=== PATIENT | male | born 1980 | race Two or more races ===

== ENCOUNTER 2021-07-31 09:21 | Emergency (ER) | payer MEDICAID, OTHER ==
[~2021-07-31] VITALS: Ht 180.3 cm; Wt 95.3 kg
[2021-07-31 10:26] VITALS: BP 110/73
[2021-07-31] MEDS ORDERED: KETOROLAC TROMETH 60MG/2ML VIAL IM ONE (10:30)
[2021-07-31] MEDS ORDERED: IBUP800T26 PO (10:32)
[2021-07-31 11:11] LABS: Urine Bacteria NONE SEEN /hpf (None Seen); Urine Blood Negative /uL (Negative); Urine Mucus FEW (None Seen); Urine Specific Gravity 1.027 (1.001-1.035); Urine WBC 3 /hpf (0 - 3)
[2021-07-31] MEDS ORDERED: PRED10TA PO (12:27)
== END 2021-07-31 12:39 | disposition home or self-care (01) ==
LOC: ER 09:29
DX: M25.462 Effusion, left knee (principal); E79.0 Hyperuricemia without signs of inflammatory arthritis and tophaceous disease; Z79.1 Long term (current) use of non-steroidal anti-inflammatories (NSAID)
CPT/HCPCS: 36415; 73562; 81001; 84550; 96372; 99284; J1885

== ENCOUNTER 2025-01-22 10:55 | Emergency (ER) | payer BC, MEDICAID ==
[~2025-01-22] VITALS: Ht 180.3 cm; Wt 100.0 kg
[~2025-01-22 10:55] MED LIST: ALL300T PO; CEPH250C PO; HYDR-4902 PO; IBUP-1455 PO; INDO50CA82 PO; PRED10TA PO; PRED20TA2 PO
--- NOTE | 2025-01-22 11:09 | ED.PDOC ---
Musculoskeletal HPI Comments This patient is a pleasant but obese 44-year-old male with PMHx Gout presents with a chief complaint of right knee pain. Patient mentions that his right knee is swollen and rates his pain a 7/10 at this time. Patient reports a history of Gout, but is unsure if this is a Gout flare up. Additionally, patient has had knee effusion in the past as he works on his knees at work. Patient mentions that the swelling and pain was spontaneous and denies any trauma or injuries prior to onset. No other symptoms or modifying factors present at this time. Patient was hypertensive and tachycardic at arrival. Chief Complaint: Lower Extremity Time Seen by MD: 11:03 Primary Care Provider: LEO Gonzalez Notes: Nurses Notes, Medications, Allergies Allergies: Coded Allergies: NO KNOWN ALLERGIES (Unverified , 07/31/21) Home Meds Active Scripts Ibuprofen Micronized (Ibuprofen) 800 Mg Tab, 800 MG PO Q8HP PRN, #20 TAB Prov:PATRICIA AVERY PAC 01/22/25 Indomethacin (Indomethacin) 50 Mg Cap, 1 CAP PO TID, #30 CAP 1 Refill Prov:CARLOZ ROD MD 06/29/23 Allopurinol (ZYLOPRIM TABLET) 300 Mg Tb, 1 TAB PO DAILY, #90 TAB 3 Refills Prov:CARLOZ ROD MD 06/29/23 Prednisone (Prednisone) 20 Mg Tab, 20 MG PO BID, #14 MG Prov:CARLOZ ROD MD 06/29/23 Hydrocodone-Acetaminophen (Hydrocodone Bitartrate/AC 5-325 mg) 1 Tab Tab, 1 TAB PO QID PRN, #30 TAB Prov:CARLOZ ROD MD 06/29/23 Cephalexin (KEFLEX CAPSULE) 250 Mg Cp, 1 CAP PO QID, #40 CAP Prov:CARLOZ ROD MD 06/29/23 Prednisone (Prednisone) 10 Mg Tab, 10 MG PO DAILY for 5 Days, #5 TAB 0 Refills Prov:NEGAR [employer]APER JAVASCRIPT PROGRAMMER 07/31/21 Ibuprofen Micronized (Ibuprofen) 800 Mg Tab, 800 MG PO TIDPRN PRN for 10 Days, #30 TAB 0 Refills Prov:NEGAR DRAPER JAVASCRIPT PROGRAMMER 07/31/21 Information Source: Patient Mode of Arrival: Ambulatory Location: Right Extremity Location: Knee Timing: Days Prehospital treatment: None Severity: Moderate Able to Move Extremity: Yes Bear Weight: Fully Pain: Moderate Hand Dominance: Right Mechanism: Spontaneous Circumstances: Spontaneous Onset of Symptoms: Spontaneous Symptoms: Swelling, Pain DVT Risk Factors: NONE Last Tetanus: UTD History of: Gout Associated signs and symptoms: Knee pain Past Medical History PAST MEDICAL HISTORY: Gout Surgical History: Denies all surgeries Family History Family History: Reviewed,noncontributory to illness Social History Smoker: Non-Smoker Alcohol: Denies ETOH Use Drugs: Denies Drug Use Lives In: Home Constitutional: denies: chills, diaphoresis, fatigue, fever, malaise, sweats, weakness, others EENTM: denies: blurred vision, double vision, ear bleeding, ear discharge, ear drainage, ear pain, ear ringing, eye pain, eye redness, hearing loss, mouth pain, mouth swelling, nasal discharge, nose bleeding, nose congestion, nose pain, photophobia, tearing, throat pain, throat swelling, voice changes, others Respiratory: denies: cough, hemoptysis, orthopnea, SOB at rest, shortness of breath, SOB with excertion, stridor, wheezing, others Cardiovascular: denies: chest pain, dizzy spells, diaphoresis, Dyspnea on exertion, edema, irregular heart beat, left arm pain, lightheadedness, palpitations, PND, syncope, others Gastrointestinal: denies: abdomen distended, abdominal pain, blood streaked bowels, constipated, diarrhea, dysphagia, difficulty swallowing, hematemesis, melena, nausea, poor appetite, poor fluid intake, rectal bleeding, rectal pain, vomiting, others Genitourinary: denies: burning, dysuria, flank pain, frequency, hematuria, incontinence, penile discharge, penile sore, pain, testicle pain, testicle swelling, urgency, others Neurological: denies: dizziness, fainting, headache, left sided numbness, left sided weakness, numbness, paresthesia, pre-existing deficit, right sided numbness, right sided weakness, seizure, speech problems, tingling, tremors, weakness, others Musculoskeletal: reports: gout, joint pain (Right knee); denies: back pain, joint swelling, muscle pain, muscle stiffness, neck pain, others Integumetry: denies: bruises, change in color, change in hair/nails, dryness, laceration, lesions, lumps, rash, wounds, others Allergic/Immunocompromised: denies: Difficulty Healing, Frequent Infections, Hives, Itching, others Hematologic/Lymphatic: denies: anemia, blood clots, easy bleeding, easy bruising, swollen glands, others Endocrine: denies: excessive hunger, excessive sweating, excessive thirst, excessive urination, flushing, intolerance to cold, intolerance to heat, unexplained weight gain, unexplained weight loss, others Psychiatric: denies: anxiety, bipolar disorder, depression, hopeless, panic disorder, schizophrenia, sleepless, suicidal, others All Other Systems: Reviewed and Negative Physical Exam General Appearance: Moderate Distress (Moderate distress due to right knee pain concerns.), Obese HEENT: Normal ENT Inspection, Pharynx Normal, TMs Normal Neck: Full Range of Motion, Non-Tender, Normal, Normal Inspection Respiratory: Chest Non-Tender, Lungs Clear, No Accessory Muscle Use, No Respiratory Distress, Normal Breath Sounds Cardiovascular: No Edema, No JVD, No Murmur, No Gallop, Normal Peripheral Pulses, Regular Rate/Rhythm Breast Exam: Deferred Gastrointestinal: No Organomegaly, Non Tender, No Pulsatile Mass, Normal Bowel Sounds, Soft Genitalia: Deferred Pelvic: Deferred Rectal: Deferred Extremities: Other (Right knee reveals some [id number] edema with some restriction on straightening of the lower extremity. No warmth. No erythema. No signs of infection.) Musculoskeletal : Apperance: Normal Neurologic: Alert, No Motor Deficits, Normal Affect, Normal Mood, No Sensory Deficits Cerebellar Function: Normal Reflexes: Normal Skin: Dry, Normal Color, Warm Lymphatic: No Adenopathy Was a procedure done? Was a procedure done?: No Differential Diagnosis EXT Differential Diagnosis: Other (Knee joint effusion, knee sprain, knee fracture) X-Ray, Labs, Meds, VS Vital Signs Date Time Temp Pulse Resp B/P (MAP) Pulse Ox O2 Delivery O2 Flow Rate FiO2 01/22/25 12:44 98 18 98 Room Air 01/22/25 12:44 98.6 98 18 146/102 (117) 98 98.6 01/22/25 10:57 98.4 103 18 148/100 97 98.4 Lab Test 01/22/25 11:17 Range/Units White Blood Count 10.2 4.4-10.8 10^3/uL Red Blood Count 5.20 4.5-5.90 10^6/uL Hemoglobin 16.1 13.5-17.5 g/dL Hematocrit 47.6 41.0-53.0 % Mean Corpuscular Volume 91.6 80.0-100.0 fL Mean Corpuscular Hemoglobin 31.0 28.0-32.0 pg Mean Corpuscular Hemoglobin Concent 33.8 32.0-36.0 g/dL Red Cell Distribution Width 13.2 11.8-14.3 % Platelet Count 286 140-450 10^3/uL Mean Platelet Volume 7.9 6.9-10.8 fL Neutrophils (%) (Auto) 62.0 37.0-80.0 % Lymphocytes (%) (Auto) 29.3 10.0-50.0 % Monocytes (%) (Auto) 6.8 0.0-12.0 % Eosinophils (%) (Auto) 1.2 0.0-7.0 % Basophils (%) (Auto) 0.7 0.0-2.0 % Neutrophils # (Auto) 6.3 1.6-8.6 10 ^3/uL Lymphocytes # (Auto) 3.0 0.4-5.4 10 ^3/uL Monocytes # (Auto) 0.7 0-1.3 10 ^3/uL Eosinophils # (Auto) 0.1 0-0.8 10 ^3/uL Basophils # (Auto) 0.1 0-0.2 10 ^3/uL Nucleated Red Blood Cells 0.0 % Sodium Level 141 136-145 mmol/L Potassium Level 4.1 3.5-5.1 mmol/L Chloride Level 104 98-107 mmol/L Carbon Dioxide Level 30 20-31 mmol/L Anion Gap 7 5-15 Blood Urea Nitrogen 20 9-23 mg/dL Creatinine 1.29 0.700-1.30 mg/dL Glomerular Filtration Rate Calc 70 >90 mL/min BUN/Creatinine Ratio 15.5 10.0-20.0 Serum Glucose 134 H 74-106 mg/dL Uric Acid 8.5 3.7-9.2 mg/dL Calcium Level 9.4 8.7-10.4 mg/dL Current Medications Medications (Trade) Dose Ordered Sig/Jin Route Start Time Stop Time Status Last Admin Ketorolac Tromethamine (Toradol Injection) 30 mg ONCE ONCE IM 8/8/25 11:15 01/22/25 11:16 DC 01/22/25 12:37 Acetaminophen/ Hydrocodone Bitart ([place] 5/325MG Tab) 1 tab ONCE ONCE PO 01/22/25 11:15 01/22/25 11:16 DC 01/22/25 12:42 X-Ray, Labs, Meds, VS Comment All studies performed the ED were evaluated by me personally. Imaging studies of the right knee revealed moderate joint effusion without evidence of acute fracture dislocation. Discussed the findings with the patient. Advised that he did not have extensive note collection that would warrant any aspiration today. As the patient has had effusion events in the past which is probably related to his work, advise the patient that he needs to figure out a different way to do his job where he is either sitting on a rolling stool or laying down. Advised that if he continues to work all on his knees that he may continued experience these kinds of concerns. Time of 1ST Reevaluation: 12:20 Reevaluation 1ST: Improved Consultation: PCP Patient Education/Counseling: Diagnosis, Treatment, Need For Follow Up Family Education/Counseling: Diagnosis, Treatment, Need For Follow Up Sepsis Recent Procedure: No On Antibiotic Therapy: No Respiratory Rate >20: No Heart Rate >90: No Temp<36 C (96.8 F) or >38.3 C: No SBP <90 or MAP <65 mmHG: No New Acute Mental Status Change: No Is the patient on CPAP, BIPAP,: No IV fluid given: No Departure 1 Departure Time of Disposition: 12:20 Impression: Primary Impression: Effusion of right knee joint Disposition: 01 HOME / SELF CARE / HOMELESS Condition: Stable Additional Instructions: Advised patient utilize medication as needed for symptomatic relief in additionally, patient needs to find a different way to do his job as remaining on his knees will lead to recurrent effusion events. e-Prescriptions Hydrocodone-Acetaminophen (Hydrocodone Bitartrate/AC 5-325 mg) 1 Tab Tab 1 TAB PO Q6HP PRN, #15 TAB Prov: PATRICIA AVERY PAC 01/22/25 Ibuprofen Micronized (Ibuprofen) 800 Mg Tab 800 MG PO Q8HP PRN, #20 TAB Prov: PATRICIA AVERY PAC 01/22/25 Discharged With: Self, Spouse Critical Care Note Critical Care Time?: No Stability Stability form required: No Heart Score Heart Score: Heart Score Response (Comments) Value History N/A 0 EKG N/A 0 Age N/A 0 Risk Factors N/A 0 Troponin N/A 0 Total 0 I personally scribed for PATRICIA AVERY PAC ([email or web address]) on 01/22/25 at 11:09. Electronically submitted by Christopher Lugo ([email or web address]). PATRICIA AVERY PAC Jan 22, 2025 11:09
--- NOTE | 2025-01-22 11:38 | DVH ---
CLINICAL INDICATION: Pain/swelling TECHNIQUE: XY R KNEE 3V XRAY Comparison: L KNEE 3V XRAY on DOS: 07/31/21 FINDINGS/IMPRESSION: : There is no evidence of acute fracture or dislocation. Moderate joint effusion.
[2025-01-22 11:54] LABS: Chloride 104 mmol/L (98-107); Potassium 4.1 mmol/L (3.5-5.1); Sodium 141 mmol/L (136-145)
[2025-01-22 11:55] LABS: Anion Gap 7 (5-15); Carbon Dioxide 30 mmol/L (20-31); Hematocrit 47.6 % (41.0-53.0); Hemoglobin 16.1 g/dL (13.5-17.5); Mean Corpuscular Hemoglobin 31.0 pg (28.0-32.0); Mean Corpuscular Volume 91.6 fL (80.0-100.0); Nucleated Red Blood Cells % 0.0 %
[2025-01-22 11:56] LABS: Calcium 9.4 mg/dL (8.7-10.4)
[2025-01-22 11:59] LABS: Uric Acid 8.5 mg/dL (3.7-9.2)
[2025-01-22 12:00] LABS: BUN/Creatinine Ratio 15.5 (10.0-20.0); Blood Urea Nitrogen 20 mg/dL (9-23)
[2025-01-22 12:01] LABS: Glucose 134 mg/dL (74-106)
[2025-01-22] MEDS: KETOROLAC TROMETH 60MG/2ML VIAL IM ONE (12:37)
[2025-01-22] MEDS ORDERED: IBUP-1455 PO (12:38)
[2025-01-22] MEDS: HYDROcodone-ACET 5/325MG TAB PO ONE (12:42)
[2025-01-22] MEDS ORDERED: HYDR-4902 PO (13:50)
[2025-01-22 14:55] VITALS: BP 121/84; PULSE 79; RESP 18; TEMP 98.3; O2SAT 97
== END 2025-01-22 14:57 | disposition home or self-care (01) ==
LOC: ER 10:55
DX: M25.461 Effusion, right knee (principal); E66.9 Obesity, unspecified; Z79.52 Long term (current) use of systemic steroids; Z79.899 Other long term (current) drug therapy
CPT/HCPCS: 36415; 73562; 80048; 84550; 85025; 96372; 99284; J1885